=== PATIENT | male | born 1945 | race Caucasian/White ===

== ENCOUNTER → 2021-06-22 09:42 | Outpatient (BNVA) | payer MEDICARE, SELFPAY | PROVIDERS: PCP Family Medicine; Referring Provider Family Medicine; Visit Provider Internal Medicine | DX: I25.10 Atherosclerotic heart disease of native coronary artery without angina pectoris (principal); I10 Essential (primary) hypertension; E11.8 Type 2 diabetes mellitus with unspecified complications; Z95.1 Presence of aortocoronary bypass graft | CPT/HCPCS: 93005; 99202 ==

== ENCOUNTER → 2021-08-10 08:29 | Outpatient (REF) | payer MEDICARE, SELFPAY ==
--- NOTE | 2021-08-10 08:39 | CA_ITS ---
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 Study Quality: Fair ECG Rhythm: Sinus Conclusions: - The left ventricular systolic function is normal. The calculated ejection fraction is 66% by biplane method. - There is severely decreased right ventricular systolic function. - There is mild aortic valve stenosis. Findings Left Ventricle Normal left ventricular cavity size. The left ventricular systolic function is normal. The calculated ejection fraction is 66% by biplane method. There is no evidence of regional wall motion abnormalities. Diastolic function is normal for age. There is mild septal asymmetric hypertrophy. Right Ventricle Normal right ventricular cavity size. There is severely decreased right ventricular systolic function. Atria Both atria are normal in size. Aortic Valve There is mild calcification of the aortic valve. There is mild aortic valve stenosis. The mean gradient is 8 mmHg. There is no aortic valve regurgitation. Dimensionless index 0.44. Stroke volume index 30ml. Mitral Valve The mitral valve appears normal. There is trace mitral valve regurgitation. There is no mitral valve stenosis. Pulmonic Valve The pulmonic valve was not well visualized. Tricuspid Valve Normal tricuspid valve structure. There is trace tricuspid valve regurgitation. The pulmonary artery systolic pressure is normal. Great Vessels The aortic annulus, sinuses of valsalva, sino tubular ridge, and asc aorta are normal in size. Small plaque is seen in the sino tubular ridge. Venous The inferior vena cava is normal in size and collapses greater than 50% with inspiration. Pericardium/Pleural There is no evidence of pericardial effusion. Prior Study Comparison No prior study available for comparison. Measurements 2D Linear Measurements IVSd: 1.29 0.6-0.9/0.6-1.0 cm LVIDd: 4.13 3.9-5.3/4.2-5.9 cm LVIDd Index: 2.31 2.4-3.2/2.2-3.1 cm/m2 LVIDs: 1.93 2.0-3.6 cm LVPWd: 0.90 0.7-1.1 cm LA Diam: 3.20 2.7-3.8/3.0-4.0 cm LAIDs Index: 1.79 1.5-2.3 cm/m2 LV Mass: 189.52 67-162/88-224 g LV Mass Index: 105.88 43-95/49-115 g/m2 LVOT Diam: 2.00 3.0+(-)1.3 cm 2D Systolic Function EF 4C: 61.60 >55% EF 2C: 65.80 >55% EF BiP: 65.50 >55% Mitral Valve MV Pk E: 0.67 MV PK A: 0.83 MV Decel Time: 285.00 E/A: 0.80 E'Lateral: 9.14 E'Medial: 6.85 E/E' Med: 9.70 E/E' Lat: 7.30 PHT: 84.00 MVA PHT: 2.62 Decel Frederick: 2.34 Aortic Valve AoV Pk James: 1.89 AoV Mn James: 1.29 AoV VTI: 0.39 AoV Pk Grad: 14.00 Aov Mn Grad: 8.00 SOPHIA Cont.VTI: 1.37 LVOT LVOT Pk James: 0.83 LVOT Mn James: 0.56 LVOT VTI: 0.17 LVOT Pk Grad: 3.00 LVOT Mn Grad: 1.00 LVOT Diam: 2.00 LVOT Area: 3.14 Diastolic Function MV Pk E: 0.67 MV Pk A: 0.83 E/A: 0.80 E'Medial: 6.85 E/E' Med: 9.70 E' Laterial: 9.14 E/E' Lat: 7.30 Right Ventricle TAPSE (mm): 7.73 TVS' James: 7.07 Tricuspid Valve TR Pk James: 2.23 TR Pk Grad: 20.00 RA Press: 3.00 RVSP: 23.00 Great Vessels Aorta Sinus of Valsalva: 3.44 2.0-3.[address] Ridge: 1.99 1.7-3.4 cm Ao Asc: 3.80 2.1-3.4 cm Ao Arch: 3.30 Updated in Other Vendor System with Status of Final Chava Stallworth MD electronically signed on 08/12/2021 1:55:50 PM with status of Final
== END ==
LOC: HO.CARD 08:29
PROVIDERS: Visit Provider Internal Medicine
DX: I25.10 Atherosclerotic heart disease of native coronary artery without angina pectoris (principal); Z95.1 Presence of aortocoronary bypass graft
CPT/HCPCS: 93306

== ENCOUNTER 2022-01-05 09:25 | Outpatient (REF) | payer MEDICARE, SELFPAY ==
--- NOTE | ~2022-01-05 | XR_ITS ---
EXAMINATION: XR KNEE, RIGHT XR KNEE, LEFT CLINICAL INFORMATION: Pain COMPARISON: None TECHNIQUE: Right knee is imaged in 5 views. Left knee is imaged in 4 views. FINDINGS: Right: No fracture, dislocation, destructive process, or effusion. There are tricompartment osteoarthritic changes, greatest medial knee joint compartment and lateral patellofemoral joint with joint narrowing and mild subchondral sclerosis and marginal osteophytes. There is no erosive change or definite chondrocalcinosis. Mild secondary genu varus. No lateralization or tilting patella. There is calcification vasculature primarily M?nckeberg medial calcific sclerosis.? Left: No fracture, dislocation, destructive process, or effusion. There are tricompartment osteoarthritic changes, greatest medial knee joint compartment and lateral patellofemoral joint with joint narrowing and mild subchondral sclerosis and marginal osteophytes. There is no erosive change or definite chondrocalcinosis. Mild secondary genu varus. No lateralization or tilting patella. There is calcification vasculature primarily M?nckeberg medial calcific sclerosis.? XR/XR knee LT 4V IMPRESSION: -Bilateral tricompartment osteoarthritis, greatest medial knee joint compartments with secondary genu varus. -No suprapatellar effusion. No erosive change.
--- NOTE | ~2022-01-05 | XR_ITS ---
EXAMINATION: XR LUMBOSACRAL SPINE WITH OBLIQUES CLINICAL INFORMATION: Low back pain COMPARISON: None TECHNIQUE: Lumbar spine is imaged in 5 views. FINDINGS: There is normal lumbar segmentation with 5 nonrib-bearing lumbar vertebrae of normal height and with normal lumbar lordosis. There is a gentle dextrocurvature. There is no lumbar vertebral compression, destructive process, or visible paraspinal soft tissue swelling. Multilevel degenerative changes are present with vertebral spurring at all levels and degenerative disc changes greatest at L5-S1 disc narrowing and endplate sclerosis. There is lesser disc narrowing at L1-L2. Facet degeneration is present at L4-S1. There is a borderline grade 0-1 spondylolisthesis at L4-L5. No visible spondylolysis. The SI joints and visualized sacrum are unremarkable. XR/XR lumbar spine 4V min IMPRESSION: 1. Degenerative disc changes L5-S1. Facet degeneration L4-S1. Multilevel vertebral spurring. 2. Borderline grade 0-1 spondylolisthesis L4-L5. No spondylolysis. 3. No vertebral compression or destructive process.
--- NOTE | ~2022-01-05 | XR_ITS ---
EXAMINATION: XR KNEE, RIGHT XR KNEE, LEFT CLINICAL INFORMATION: Pain COMPARISON: None TECHNIQUE: Right knee is imaged in 5 views. Left knee is imaged in 4 views. FINDINGS: Right: No fracture, dislocation, destructive process, or effusion. There are tricompartment osteoarthritic changes, greatest medial knee joint compartment and lateral patellofemoral joint with joint narrowing and mild subchondral sclerosis and marginal osteophytes. There is no erosive change or definite chondrocalcinosis. Mild secondary genu varus. No lateralization or tilting patella. There is calcification vasculature primarily M?nckeberg medial calcific sclerosis.? Left: No fracture, dislocation, destructive process, or effusion. There are tricompartment osteoarthritic changes, greatest medial knee joint compartment and lateral patellofemoral joint with joint narrowing and mild subchondral sclerosis and marginal osteophytes. There is no erosive change or definite chondrocalcinosis. Mild secondary genu varus. No lateralization or tilting patella. There is calcification vasculature primarily M?nckeberg medial calcific sclerosis.? XR/XR knee RT 4V IMPRESSION: -Bilateral tricompartment osteoarthritis, greatest medial knee joint compartments with secondary genu varus. -No suprapatellar effusion. No erosive change.
== END 2022-01-05 09:26 | disposition home or self-care (01) ==
LOC: HO.XRAY 09:25
PROVIDERS: Visit Provider Family Medicine
DX: M25.561 Pain in right knee (principal); M25.562 Pain in left knee; M54.50 Low back pain, unspecified
CPT/HCPCS: 72110; 73564

== ENCOUNTER 2022-09-01 11:18 | Outpatient (REF) | payer MEDICARE, SELFPAY ==
--- NOTE | ~2022-09-01 | XR_ITS ---
EXAMINATION: XR FOOT, LEFT CLINICAL INFORMATION: Left ankle and foot swelling COMPARISON: None available. TECHNIQUE: AP, lateral, and oblique views of the left foot. FINDINGS: Bone alignment is normal. No fracture or dislocation. Joint spaces are normal. There is a plantar calcaneal spur. There is soft tissue arterial calcification. XR/XR foot LT min 3V IMPRESSION: No acute findings.
== END 2022-09-01 11:19 | disposition home or self-care (01) ==
LOC: HO.XRAY 11:18
PROVIDERS: Visit Provider Family Medicine
DX: M25.472 Effusion, left ankle (principal); R60.0 Localized edema
CPT/HCPCS: 73630

== ENCOUNTER 2023-02-07 10:20 | Outpatient (REF) | payer MEDICARE, SELFPAY ==
[2023-02-07 13:38] LABS: Free T4 (Free Thyroxine) 0.85 ng/dL (0.71-1.85); Thyroid Stimulating Hormone 2.37 uIU/mL (0.32-4.0)
== END 2023-02-07 10:21 | disposition home or self-care (01) ==
LOC: HO.HHCL 10:20
PROVIDERS: Visit Provider Family Medicine
DX: E03.9 Hypothyroidism, unspecified (principal)
CPT/HCPCS: 36415; 84439; 84443

== ENCOUNTER 2023-04-24 09:52 | Outpatient (REF) | payer MEDICARE, SELFPAY ==
[2023-04-24 11:23] LABS: MANUAL DIFF FLAG NO
[2023-04-24 11:44] LABS: Basophils Percent Auto 0.1 % (0-2); Hematocrit 44.5 % (42.0-52.0); Imm Gran Abs Auto 0.03 X10*3/uL (0.00-0.03); Imm Gran Pct Auto 0.4 % (0.0-0.4); Lymphocytes Absolute Auto 1.3 X10*3/uL (1.2-4.9); Mean Corpuscular HGB Conc 31.5 g/dl (31.0-36.0); Mean Corpuscular Hemoglobin 28.8 pg (27.0-33.0); Mean Corpuscular Volume 91.6 fL (80.0-98.0); Mean Platelet Volume 11.8 fL (9.4-12.4); Monocytes Absolute Auto 0.8 X10*3/uL (0.1-1.2); Monocytes Percent Auto 9.9 % (2-11); Neutrophils Absolute Auto 6.1 x10*3/uL (2.0-8.3); Neutrophils Percent Auto 73.6 % (45-73); Platelet Count 232 X10*3/uL (160-400); Red Blood Count 4.86 X10*6/uL (4.60-5.80); Red Cell Distribution Width 13.1 % (11.0-16.0); White Blood Count 8.3 X10*3/uL (4.8-10.8)
[2023-04-24 12:01] LABS: Uric Acid 6.3 mg/dL (3.4-7.0)
[2023-04-24 12:16] LABS: TSH reflex Free T4 0.91 uIU/mL (0.32-4.0)
[2023-04-24 12:24] LABS: Erythrocyte Sedimentation Rate 55 MM/HR (0-15)
== END 2023-04-24 09:53 | disposition home or self-care (01) ==
LOC: HO.HHCL 09:52
PROVIDERS: Visit Provider Family Medicine
DX: M10.9 Gout, unspecified (principal); M25.471 Effusion, right ankle; E03.9 Hypothyroidism, unspecified
CPT/HCPCS: 36415; 84443; 84550; 85025; 85652; 86140

== ENCOUNTER 2023-06-04 10:19 | Outpatient (REF) | payer MEDICARE, SELFPAY ==
[2023-06-04 11:11] LABS: MANUAL DIFF FLAG NO
[2023-06-04 11:42] LABS: Basophils Percent Auto 0.4 % (0-2); Eosinophils Absolute Auto 0.2 X10*3/uL (0.0-0.4); Eosinophils Percent Auto 2.2 % (0-4); Hematocrit 47.8 % (42.0-52.0); Hemoglobin 15.6 g/dl (14.0-18.0); Imm Gran Abs Auto 0.03 X10*3/uL (0.00-0.03); Imm Gran Pct Auto 0.4 % (0.0-0.4); Lymphocytes Absolute Auto 2.1 X10*3/uL (1.2-4.9); Lymphocytes Percent Auto 30.8 % (20-40); Mean Corpuscular HGB Conc 32.6 g/dl (31.0-36.0); Mean Corpuscular Volume 88.8 fL (80.0-98.0); Mean Platelet Volume 11.5 fL (9.4-12.4); Monocytes Absolute Auto 0.7 X10*3/uL (0.1-1.2); Monocytes Percent Auto 10.2 % (2-11); Neutrophils Absolute Auto 3.9 x10*3/uL (2.0-8.3); Platelet Count 189 X10*3/uL (160-400); Red Blood Count 5.38 X10*6/uL (4.60-5.80); Red Cell Distribution Width 13.7 % (11.0-16.0)
[2023-06-04 12:28] LABS: Alanine Aminotransferase 27 U/L (0-40); Albumin Level 4.1 g/dL (3.5-5.0); Alkaline Phosphatase 93 U/L (39-117); Anion Gap 13 (12-20); Aspartate Amino Transferase 26 U/L (5-37); Bilirubin Total 1.3 mg/dL (0.0-1.0); Blood Urea Nitrogen 18 mg/dL (9-16); C Reactive Protein 0.12 mg/dL (< or = 0.50); Calcium 9.7 mg/dL (8.4-10.2); Carbon Dioxide 30 mmol/L (22-29); Chloride 103 mmol/L (96-108); Cholesterol 125 mg/dL (<200); Estimated Glomerular Filt Rate > 60; Glucose Random 119 mg/dL (60-115); HDL Cholesterol 39 mg/dL (>40); LDL Cholesterol Calculated 70 mg/dL (<100); Potassium 4.5 mmol/L (3.3-5.1); Sodium 141 mmol/L (135-145); Total Protein 7.5 g/dL (6.5-8.0); Triglycerides 82 mg/dL (<150); Uric Acid 5.9 mg/dL (3.4-7.0)
[2023-06-04 12:51] LABS: Erythrocyte Sedimentation Rate 4 MM/HR (0-15)
[2023-06-04 12:54] LABS: TSH reflex Free T4 2.57 uIU/mL (0.32-4.0)
[2023-06-04 13:37] LABS: Reflex LDLD? No
[2023-06-04 14:27] LABS: Folate 9.4 ng/mL (> or = 4.0); Vitamin B12 281 pg/mL (200-900)
[2023-06-04 15:41] LABS: Creatinine Urine 129.57 mg/dL; Microalbum/Creatinine Ratio Ur 19.2 ug/mg cr (<30)
== END 2023-06-04 10:20 | disposition home or self-care (01) ==
LOC: HO.HHCL 10:19
PROVIDERS: Visit Provider Family Medicine
DX: E11.59 Type 2 diabetes mellitus with other circulatory complications (principal); M1A.0790 Idiopathic chronic gout, unspecified ankle and foot, without tophus (tophi); E03.9 Hypothyroidism, unspecified
CPT/HCPCS: 36415; 80053; 80061; 82043; 82570; 82607; 82746; 84443; 84550; 85025; 85652; 86140

== ENCOUNTER 2024-01-30 10:32 | Outpatient (REF) | payer MEDICARE, SELFPAY ==
--- NOTE | ~2024-01-30 | XR_ITS ---
EXAMINATION: XR ANKLE, RIGHT CLINICAL INFORMATION: medial aspect, right ankle. History of gout. COMPARISON: None available. TECHNIQUE: AP, lateral, and mortise views of the right ankle. FINDINGS: No fracture, dislocation, or suspicious focal bone lesion. The ankle mortise is intact. The talar dome is normal. No erosions. Normal alignment. There are mild changes of osteoarthritis in the tibiotalar and fibulotalar joints. Mild pes planus suspected. There is a prominent plantar calcaneal spur. There is medial mild soft tissue swelling. There are vascular calcifications. XR/XR ankle RT min 3V IMPRESSION: 1. No acute findings right ankle. 2. Mild osteoarthritis. 3. Prominent plantar calcaneal spur. Electronically signed by: Marcos Duque MD 04/09/2024 03:22 PM BRADY
== END 2024-01-30 10:33 | disposition home or self-care (01) ==
LOC: HO.XRAY 10:32
PROVIDERS: PCP Family Medicine; Visit Provider Family Medicine
DX: M25.571 Pain in right ankle and joints of right foot (principal)
CPT/HCPCS: 73610

== ENCOUNTER → 2024-01-30 10:36 | Outpatient (BNV) | payer MEDICARE, SELFPAY | PROVIDERS: PCP Family Medicine; Visit Provider Radiology Diagnostic Radiology | DX: M77.31 Calcaneal spur, right foot (principal); M19.071 Primary osteoarthritis, right ankle and foot | CPT/HCPCS: 73610 ==

== ENCOUNTER 2024-05-27 12:21 | Outpatient (REF) | payer MEDICARE, SELFPAY ==
[2024-05-27 13:55] LABS: Alanine Aminotransferase 29 U/L (0-40); Alkaline Phosphatase 83 U/L (39-117); Anion Gap 7 (12-20); Aspartate Amino Transferase 32 U/L (5-37); Bilirubin Total 1.2 mg/dL (0.0-1.0); Blood Urea Nitrogen 16 mg/dL (9-16); Calcium 8.9 mg/dL (8.4-10.2); Carbon Dioxide 30 mmol/L (22-29); Chloride 109 mmol/L (96-108); Cholesterol 226 mg/dL (<200); Estimated Glomerular Filt Rate > 60; Glucose Random 120 mg/dL (60-115); HDL Cholesterol 39 mg/dL (>40); LDL Cholesterol Calculated 162 mg/dL (<100); Potassium 4.1 mmol/L (3.3-5.1); Sodium 142 mmol/L (135-145); Total Protein 7.2 g/dL (6.5-8.0); Triglycerides 127 mg/dL (<150)
[2024-05-27 13:57] LABS: TSH reflex Free T4 3.82 uIU/mL (0.32-4.0)
[2024-05-27 14:23] LABS: Folate 11.2 ng/mL (> or = 4.0); Vitamin B12 256 pg/mL (200-900)
[2024-05-27 14:36] LABS: Creatinine Urine 60.52 mg/dL; Microalbum/Creatinine Ratio Ur 19.8 ug/mg cr (<30)
[2024-05-27 18:56] LABS: Reflex LDLD? No
== END 2024-05-27 12:22 | disposition home or self-care (01) ==
LOC: HO.HHCL 12:21
PROVIDERS: Visit Provider Family Medicine
DX: E11.59 Type 2 diabetes mellitus with other circulatory complications (principal); E03.9 Hypothyroidism, unspecified
CPT/HCPCS: 36415; 80053; 80061; 82043; 82570; 82607; 82746; 84443

== ENCOUNTER → 2024-06-13 08:48 | Outpatient (REF) | payer MEDICARE, SELFPAY ==
--- NOTE | 2024-06-13 09:03 | CA_ITS ---
Transthoracic Echocardiogram Patient (Last, First, Middle): Naveed Enciso, Gender: Male Date of : 1945 Age: 79 Procedure Date: 06/13/2024 Procedure Type: Transthoracic Echocardiogram Location: OP Height: 160.02 cm Weight: 74.84 kg BSA: 1.78 m2 Heart Rate: bpm BP: 130 / 64 mmHg Interactive Project Manager: TO Referring MD: Sharee Barone MD Symptoms: NR AVS Study Quality: Fair/Contrast ECG Rhythm: Sinus Conclusions: - The left ventricular systolic function is normal. The calculated ejection fraction is 59% by biplane method. - There is mild to moderate aortic valve stenosis. Findings Procedure Information Contrast agent, definity, is being given per protocol without apparent complications. Left Ventricle Normal left ventricular cavity size. The left ventricular systolic function is normal. The calculated ejection fraction is 59% by biplane method. There is no evidence of regional wall motion abnormalities. Diastolic function is normal for age. There is mild septal asymmetric hypertrophy. Right Ventricle Normal right ventricular cavity size. There is moderate to severely decreased right ventricular systolic function. Atria Both atria are normal in size. Aortic Valve There is moderate calcification of the aortic valve. There is mild to moderate aortic valve stenosis. There is trace (trivial) aortic valve regurgitation. Dimensionless index 0.43. Stroke volume index 30ml/m2. Mitral Valve The mitral valve appears normal. There is no mitral valve regurgitation. There is no mitral valve stenosis. Pulmonic Valve The pulmonic valve is likely normal. Tricuspid Valve There is mild tricuspid valve regurgitation. There is no evidence of pulmonary hypertension. Great Vessels The asc aorta is normal in size. Small plaque is seen in the sino tubular ridge. Venous The inferior vena cava was not well visualized. Pericardium/Pleural There is no evidence of pericardial effusion. Prior Study Comparison No significant change compared to prior study dated: 08/10/2021. Measurements 2D Linear Measurements IVSd: 1.16 0.6-0.9/0.6-1.0 cm LVIDd: 4.09 3.9-5.3/4.2-5.9 cm LVIDd Index: 2.30 2.4-3.2/2.2-3.1 cm/m2 LVIDs: 2.45 2.0-3.6 cm LVPWd: 0.81 0.7-1.1 cm LA Diam: 3.00 2.7-3.8/3.0-4.0 cm LAIDs Index: 1.69 1.5-2.3 cm/m2 LV Mass: 160.64 67-162/88-224 g LV Mass Index: 90.24 43-95/49-115 g/m2 LVOT Diam: 2.00 3.0+(-)1.3 cm 2D Systolic Function EF 4C: 55.80 >55% EF 2C: 60.20 >55% EF BiP: 59.10 >55% Mitral Valve MV Pk E: 0.54 MV PK A: 0.68 MV Decel Time: 243.00 E/A: 0.80 E'Lateral: 7.40 E'Medial: 5.98 E/E' Med: 9.10 E/E' Lat: 7.40 PHT: 69.00 MVA PHT: 3.19 Decel Wirt: 2.35 Aortic Valve AoV Pk James: 2.06 AoV Mn James: 1.51 AoV VTI: 0.45 AoV Pk Grad: 17.00 Aov Mn Grad: 10.00 SOPHIA Cont.VTI: 1.21 LVOT LVOT Pk James: 0.89 LVOT Mn James: 0.58 LVOT VTI: 0.17 LVOT Pk Grad: 3.00 LVOT Mn Grad: 2.00 LVOT Diam: 2.00 LVOT Area: 3.14 Diastolic Function MV Pk E: 0.54 MV Pk A: 0.68 E/A: 0.80 E'Medial: 5.98 E/E' Med: 9.10 E' Laterial: 7.40 E/E' Lat: 7.40 Right Ventricle TAPSE (mm): 8.25 TVS' James: 8.38 Tricuspid Valve TR Pk James: 1.96 TR Pk Grad: 15.00 Great Vessels Aorta Sinus of Valsalva: 3.15 2.0-3.5 cm Ao Asc: 3.70 2.1-3.4 cm Updated in Other Vendor System with Status of Final Chava Stallworth MD electronically signed on 06/14/2024 12:29:53 PM with status of Final
--- OUTSIDE RECORDS SUMMARY | 2024-06-13 09:05 | XMS_ITS | Encounter Summary ---
Author Organization [employer] Address [address] [facility] [address] [place] [address] Care Team Providers Care Floorperson Name Role Phone Sharee Barone MD Primary Care Provider [phone] Reason for Visit * Reason Onset Date Comments Medication Question 09/04/2022 Encounter Details Date Type Department Care Team ([facility] st Contact Info) Description 09/04/2022 Telephone [facility] MED[facility]INE [address] [place], [place] [phone] Sharee Barone MD [address] [place], [place] [phone] Medication Question Social History Tobacco Use Types Packs/Day Years Used Date Smoking Tobacco: Never Passive Smoke Exposure: Never Smokeless Tobacco: Never Alcohol Answer Date Recorded Frequency of Alcohol Consumption Not on file 01/24/2024 Average Number of Drinks Not on file 024 Frequency of Binge Drinking Not on file 01/12 Score 0 01/24/2024 Depression Answer Date Recorded Patient Health Questionnaire-9 Score 0 01/24/2024 Patient Health Questionnaire-9 Score 0 01/24/2024 Last PHQ-9: Questionnaire Data Not on file 0 01/24/2024 Housing Stability Answer Date Recorded What is your housing situation today? I have betty lau 01/24/[address] you li ve. Do you have problems with any of the following? None of the above 01/24/2024 Food Insecurity Answer Date Recorded Within the past 12 months, y ou worried that your food would run out before you got money to buy more: Never True 01/24/2024 Within the past 12 months,th e food you bought just didn't last and you didn't have enough money to get more: Never True 04/2024 Transportation Answer Date Recorded In the past 12 months, has l ack of transportation kept you from medical appts, meetings, work or from getting things needed for daily living? No 01/24/2024 Utilities Answer Date Recorded In the past 12 months, has t he electric, gas, oil or water company threatened to shut off services in your home? No 01/24/2024 Depression Answer Date Recorded Patient Health Questionnaire-2 Score 0 01/24/2024 Internet Access Answer Date Recorded Internet Access Q1 Yes 01/24/2024 Internet Access Q2 Not on file 01/24/2024 Sex and Gender Information Value Date Recorded Sex Assigned at Male 03/13/2022 10:39 AM EDT Legal Sex Male 10:39 AM EDT Gender Identity Male 03/13/2022 10:39 AM EDT Sexual Orientation Choose not to disclose 2021 10:39 AM EDT COVID-19 Exposure Response Date Recorded In the last 10 days, have yo u been in contact with someone who was confirmed or suspected to have Coronavirus/COVID-19? No / Unsure 10/20/2022 10:23 AM EDT documented as of this encounter Miscellaneous Notes * Telephone Encounter - Norma Santoyo RN - 09/04/2022 10:30 AM EDT See message below. Pt seen on Red Team with Dr. Singh, no rx noted in chart ordered 09/01/22, x-ray results not available. RN will forward to Dr. Singh regarding rx. Please review and advise Red Team Nurses. TY Tc from pt daughter states came in to [facility] with pt and is awaiting a script to help reduce liquid inlegs, Ad Taker does not see any recent script. Pt daughter is also requesting XRAY results. Please contact at [phone] Jamaican * Telephone Encounter - Hanane Vaughan - 09/04/2022 10:24 AM EDT Tc from pt daughter states came in to [facility] with pt and is awaiting a script to help reduce liquid inlegs, Ad Taker does not see any recent script. Pt daughter is also requesting XRAY results. Please contact at [phone] Jamaican documented in this encounter Plan of Treatment Not on file documented as of this encounter Visit Diagnoses Not on filedocumented in this encounter Additional Health Concerns Assessment Noted Time PHQ-9 Depression Total Score: 0 06/19/19 23 10:12 AM EST documented as of this encounter Care Teams Floorperson Relationship Specialty Start Date End Date Sharee Barone MD [address] [place] [id number] PCP - General Family Medicine 05/10/21 documented as of this encounter
--- OUTSIDE RECORDS SUMMARY | 2024-06-13 09:05 | XMS_ITS | Encounter Summary ---
Author Organization [employer] Address [address] [facility] [address] [place] [address] Care Team Providers Care Principal Planner Name Role Phone Sharee Barone MD Primary Care Provider [phone] Encounter Details Date Type Department Care Team (Late st Contact Info) Description 04/27/2023 Orders Only [facility] MEDICINE [address] [place], [place] [phone] Sharee Barone MD [address] [place], [place] [phone] Chronic gout of ankle, unspecified cause, unspecified laterality (Primary Dx) Social History Tobacco Use Types Packs/Day Years Used Date Smoking Tobacco: Never Passive Smoke Exposure: Never Smokeless Tobacco: Never Depression Answer Date Recorded Patient Health Questionnaire-9 Score 0 06/19/2022 Housing Stability Answer Date Recorded What is your housing situation today? I have betty lau 03/23/[address] you li ve. Do you have problems with any of the following? None of the above 03/23/2023 Food Insecurity Answer Date Recorded Within the past 12 months, y ou worried that your food would run out before you got money to buy more: Never True 03/23/2023 Within the past 12 months,th e food you bought just didn't last and you didn't have enough money to get more: Never True 02/2023 Transportation Answer Date Recorded In the past 12 months, has l ack of transportation kept you from medical appts, meetings, work or from getting things needed for daily living? No 03/23/2023 Utilities Answer Date Recorded In the past 12 months, has t he electric, gas, oil or water company threatened to shut off services in your home? No 03/23/2023 Depression Answer Date Recorded Patient Health Questionnaire-2 Score 0 06/19/2022 Sex and Gender Information Value Date Recorded Sex Assigned at Male 03/13/2022 10:39 AM EDT Legal Sex Male 10:39 AM EDT Gender Identity Male 03/13/2022 10:39 AM EDT Sexual Orientation Choose not to disclose 2021 10:39 AM EDT documented as of this encounter Plan of Treatment Scheduled Orders Name Type Priority Associated Diagnoses Orde r Schedule Uric acid Lab Routine Chronic gout of ankle, unspecified cause, unspecified laterality Expected: 05/18/2023, Expires: 04/27/2024 C-reactive Protein Lab Routine Chronic gout of ankle, unspecified cause, unspecified laterality Expected: 05/18/2023, Expires: 04/27/2024 documented as of this encounter Visit Diagnoses Diagnosis Chronic gout of ankle, unspecified cause, unspecified laterality- Primary documented in this encounter Additional Health Concerns Assessment Noted Time PHQ-9 Depression Total Score: 0 06/19/19 23 10:12 AM EST documented as of this encounter Care Teams Principal Planner Relationship Specialty Start Date End Date Sharee Barone MD [address] [place] [id number] PCP - General Family Medicine 05/10/21 documented as of this encounter
--- OUTSIDE RECORDS SUMMARY | 2024-06-13 09:05 | XMS_ITS | Encounter Summary ---
Author Organization [facility] [employer] Address [address] [facility] [address] [place] [address] Care Team Providers Care Solvent Station Attendant Name Role Phone Sharee Barone MD Primary Care Provider [phone] Encounter Details Date Type Department Care Team (Late st Contact Info) Description 04/26/2023 Orders Only [facility] MEDICINE [address] [place], [place] [phone] Sharee Barone MD [address] [place], [place] [phone] Social History Tobacco Use Types Packs/Day Years [...] as of this encounter Plan of Treatment Not on file documented as of this encounter Visit Diagnoses Not on filedocumented in this encounter Additional Health Concerns Assessment Noted Time PHQ-9 Depression Total Score: 0 06/19/19 23 10:12 AM EST documented as of this encounter Care Teams Solvent Station Attendant Relationship Specialty Start Date End Date Sharee Barone MD [address] [place] [address] PCP - General Family Medicine 05/10/21 documented as of this encounter
--- OUTSIDE RECORDS SUMMARY | 2024-06-13 09:05 | XMS_ITS | Encounter Summary ---
Author Organization [employer] Address [address] [facility] 7t [place] [address] Care Team Providers Care Occupational Health And Safety Adviser Name Role Phone Sharee Barone MD Primary Care Provider [phone] Reason for Referral * Imaging (Routine) - Authorized Specialty Diagnoses / Procedures Referred By Lola rubin Referred To Contact Cardiology Diagnoses Nonrheumatic aortic valve stenosis Procedures Transthoracic Echo (TTE) Complete Sharee Barone MD [address] [place] [address] Phone: tel: fax: [address] Phone: tel: fax: Referral ID Status Reason Start Date Expiration Date Visits Requested Visits Authorized [id number] Authorized Perform Procedure 05/27/2024 05/27/2025 1 1 Encounter Details Date Type Department Care Team (Latest Contact Info) Description 05/27/2024 11:30 AM EST Office Visit [facility]INE [address] [place], [place] [phone] Sharee Barone MD [address] [place], [place] [phone] JULIANO (obstructive sleep apnea) (Primary Dx); Primary hypertension; Ischemic heart disease; Nonrheumatic aortic valve stenosis; Coronary artery disease involving torres martinez coronary artery of torres martinez heart without angina pectoris; Primary osteoarthritis of both knees; Type 2 diabetes mellitus with other circulatory complication, without long-term current use of insulin ([facility]); Acquired hypothyroidism; Chronic gout of right ankle, unspecified cause; Dyslipidemia; Need for COVID-19 vaccine; Dietary counseling; Exercise counseling; Class 1 obesity due to excess calories with serious comorbidity and body mass index (BMI) of 32.0 to 32.9 in adult; Obesity (BMI 30.0-34.9) Social History Tobacco Use Types Packs/Day Years Used Date Smoking Tobacco: Never Passive Smoke Exposure: Never Smokeless Tobacco: Never Alcohol Use Standard Drinks/Week Comments Never 0 (1 standard drink = 0.6 oz pur e alcohol) Alcohol Answer Date Recorded Frequency of Alcohol [...] the past 12 months, has t he [employer], gas, oil or water [employer] threatened to shut off services in your [...] AM EDT documented as of this encounter Last Filed Vital Signs Vital Sign Reading Time Taken Comments Blood Pressure 134/88 05/27/2024 12:02 PM EST Pulse 65 05/27/2024 11:47 AM EST Temperature 36.2 ??C (97.1 ??F) 05/27/2024 11:[address] Respiratory Rate 22 05/27/2024 11:47 AM EST Oxygen Saturation 98% 05/27/2024 11:47 AM EST Inhaled Oxygen Concentration - - Weight 77.6 kg (171 lb) 05/27/2024 11:47 AM EST Height - - Body Mass Index 32.24 01/24/2024 10:30 AM EDT documented in this encounter Progress Notes * Sharee Barone MD - 05/27/2024 11:30 AM EST Subjective Naveed Neal is a 79 y.o. male who has CAD s/p CABG, hypertension, diabetes mellitus type 2, gout, and hypothyroidism, and patient presents for follow up of chronic conditions. Background: Our last encounter was 01/24/2024. He was looking forward to traveling to [place] soon. He reported R ankle pain and swelling. He did not think that it was gout. Interval history: No hospitalization or ED visit. No notes from consultants. Today: He is here with his daughter, who is his primary caregiver. His BP is elevated, but his home blood pressure measurements have been normal according to the patient. He has been adherent to his medication and low sodium diet. He does not drink alcohol or smoke cigarettes. His daughter attributes it to stress. His family member in [place] is having some health problem, and he is worried. He reports occasional bilateral knee pain. No recent gout attack. His daughter states his log roller's office discharged him to primary care because he was doing well. Review of Systems Constitutional: Negative for activity change, appetite change and fever. Respiratory: Negative for shortness of breath. Cardiovascular: Negative for chest pain and palpitations. Neurological: Negative for dizziness. Objective Vitals: 05/27/24 1147 05/27/24 1202 BP: (!) 150/90 134/88 Pulse: 65 Resp: 22 Temp: 97.1 ??F (36.2 ??C) TempSrc: Temporal SpO2: 98% Weight: 171 lb (77.6 kg) Physical Exam Constitutional: General: He is not in acute distress. Appearance: Normal appearance. He is not ill-appearing. HENT: Head: Normocephalic and atraumatic. Mouth/Throat: Mouth: Mucous membranes are moist. Eyes: Extraocular Movements: Extraocular movements intact. Pupils: Pupils are equal, round, and reactive to light. Cardiovascular: Rate and Rhythm: Normal rate and regular rhythm. Heart sounds: Murmur heard. Systolic murmur is present with a grade of 3/6. Pulmonary: Effort: Pulmonary effort is normal. No respiratory distress. Breath sounds: Normal breath sounds. No wheezing or rhonchi. Skin: General: Skin is warm. Neurological: Mental Status: He is alert. Mental status is at baseline. Psychiatric: Mood and Affect: Mood normal. Results: Lab Results Component Value Date NA 141 06/04/2023 K 4.5 06/04/2023 CL 103 06/04/2023 CO2 30 (H) 06/04/2023 BUN 18 (H) 06/04/2023 CREATININE 1.00 06/04/2023 EGFR >60 06/04/2023 GLUCOSE 119 (H) 06/04/2023 TOTALBILIRUB 1.3 (H) 06/04/2023 AST 26 06/04/2023 ALT 27 06/04/2023 TOTPROTEIN 7.5 06/04/2023 ALB 4.1 06/04/2023 ALP 93 06/04/2023 Lab Results Component Value Date TRIG 82 06/04/2023 CHOL 125 06/04/2023 LDLCHOLCAL 70 06/04/2023 HDL 39 (L) 06/04/2023 Lab Results Component Value Date HGBA1C 6.3 (A) 05/27/2024 MICROALBUR 25.0 06/04/2023 CREATUR 129.57 06/04/2023 MICROALBCREU 19.2 06/04/2023 ALBCREATUR 13 06/19/2022 Lab Results Component Value Date WBC 7.0 06/04/2023 HGB 15.6 06/04/2023 HCT 47.8 06/04/2023 PLT 189 06/04/2023 MCV 88.8 06/04/2023 Lab Results Component Value Date TSH 2.57 06/04/2023 TSH 0.91 04/24/2023 TSH 2.37 02/07/2023 FREET4 0.85 02/07/2023 Assessment/Plan Problem List Items Addressed This Visit Coronary artery disease Hypothyroidism -Current replacement: levothyroxine 50 mcg daily -Last TSH: 2.57 on 06/04/23 -Continue current medication and adjust its dose accordingly. Type 2 diabetes mellitus ([facility]) -HgbA1C 6.4% on 01/24/24 -Occasional prednisone use when he has gout attack (last attack in Apr 2023, slight increase in A1C) -Continue working on lifestyle modifications -Continue Metformin 500mg BID -Last eye exam: Dr. Wallace 06/14/23, no diabetic retinopathy, s/p cataract surgery -Last microalbumin test: 06/04/23 UACR 19.2, no microalbuminuria -Last lipid profile: 06/04/23 -Last comprehensive foot exam: 01/24/24 Relevant Orders POCT glucose manually resulted (Completed) POCT glycosylated hemoglobin (Hgb A1c) (Completed) JULIANO (obstructive sleep apnea) - Primary - Continue current CPAP use - Improve adherence - Recommended to talk with CPAP supplier for trying different mask Ischemic heart disease Osteoarthritis of both knees X-ray on 01/05/22 showed OA. -Pt prefers conservative management with Tylenol and Diclofenac topical -continue current treatment plan Hypertension -Goal BP < 140/90 per JNC-8 and < 130/80 per ACC/AHA -BP is not at goal today -home BP within acceptable range -Continue metoprolol tartrate 50 mg bid -Continue ASA -Continue CPAP -Continue working on lifestyle modifications -Continue checking home BP periodically -Follow-up in 3 mo. Nonrheumatic aortic valve stenosis -TTE on 08/10/21 showed LVEF 66%, severely decreased right ventricular systolic function. Mild aortic stenosis. -His murmur sounds more prominent that last exam, Grade II-III (last one was II) -[place] [facility] [place] and to follow every 1-2 years with TTE q1-2 years. -Will order echocardiogram Relevant Orders Transthoracic Echo (TTE) Complete Dyslipidemia -Last lipid profile: 06/04/23 -current medication: atorvastatin 40 mg at bedtime (high-intensity statin therapy) -continue working on lifestyle modification Obesity (BMI 30.0-34.9) Gout -most recent flare-up in Apr 2023, treated with prednisone -frequency: 2x a year, usually ankle and knee -continue low-purine diet -continue allopurinol to achieve and maintain goal < 6.0 mg/dl -his diabetes mellitus is reasonably controlled for episodic prednisone use Other Visit Diagnoses Need for COVID-19 vaccine Relevant Orders [employer] COVID-19 Vaccine 12+ (Completed) Dietary counseling Exercise counseling Class 1 obesity due to excess calories with serious comorbidity and body mass index (BMI) of 32.0 to 32.9 in adult No Known Allergies Current Outpatient Medications Medication Instructions Acetaminophen Extra Strength 500 MG tablet TAKE 2 TABLETS BY MOUTH EVERY 6 HOURS NEEDED FOR MILDPAIN, FOR MODERATE PAIN, OR FOR FEVER Alcohol Swabs (Alcohol Prep) 70 % pads USE DIRECTED TO TEST BLOOD SUGAR DAILY AND NEEDED Aspirin Adult Low Strength 81 MG EC tablet TAKE 1 TABLET BY MOUTH DAILY IN THE MORNING atorvastatin (LIPITOR) 40 mg, Oral, Nightly diclofenac sodium 3 % gel APPLY TWICE DAILY TO AFFECTED AREA(S) ibuprofen 600 mg, Oral, Every 8 hours PRN Lancets ([employer] PeopleTouch Delica Plus [id number]) misc USE DIRECTED TO TEST BLOOD SUGAR DAILY AND NEEDED levothyroxine (Synthroid, Levoxyl) 50 MCG tablet TAKE 1 TABLET BY MOUTH DAILY IN THE MORNING metFORMIN XR (Glucophage-XR) 500 MG 24 hr tablet TAKE 1 TABLET BY MOUTH TWICE DAILY IN THE MORNING AND IN THE EVENING WITH MEALS metoprolol tartrate (Lopressor) 50 MG tablet TAKE 1 TABLET BY MOUTH WITH BREAKFAST AND WITH DINNER PageUp PeopleTouch Ultra Test test strip USE DIRECTED TO TEST BLOOD SUGAR DAILY AND NEEDED Follow-up: 3-4 mo or sooner if any problem arises. documented in this encounter Miscellaneous Notes * Assessment & Plan Note - Sharee Barone MD - 05/27/2024 1:15 PM ESTAssociated Problem(s): Dyslipidemia -Last lipid profile: 06/04/23 -current medication: atorvastatin 40 mg at bedtime (high-intensity statin therapy) -continue working on lifestyle modification * Assessment & Plan Note - Sharee Barone MD - 05/27/2024 1:15 PM ESTAssociated Problem(s): Gout -most recent flare-up in Apr 2023, treated with prednisone -frequency: 2x a year, usually ankle and knee -continue low-purine diet -continue allopurinol to achieve and maintain goal < 6.0 mg/dl -his diabetes mellitus is reasonably controlled for episodic prednisone use * Assessment & Plan Note - Sharee Barone MD - 05/27/2024 1:15 PM ESTAssociated Problem(s): Hypothyroidism -Current replacement: levothyroxine 50 mcg daily -Last TSH: 2.57 on 06/04/23 -Continue current medication and adjust its dose accordingly. * Assessment & Plan Note - Sharee Barone MD - 05/27/2024 1:13 PM ESTAssociated Problem(s): Type 2 diabetes mellitus (CMS/HCC) -HgbA1C 6.4% on 01/24/24 -Occasional prednisone use when he has gout attack (last attack in Apr 2023, slight increase in A1C) -Continue working on lifestyle modifications -Continue Metformin 500mg BID -Last eye exam: Dr. Wallace 06/14/23, no diabetic retinopathy, s/p cataract surgery -Last microalbumin test: 06/04/23 UACR 19.2, no microalbuminuria -Last lipid profile: 06/04/23 -Last comprehensive foot exam: 01/24/24 * Assessment & Plan Note - Sharee Barone MD - 05/27/2024 1:13 PM ESTAssociated Problem(s): Osteoarthritis of both knees X-ray on 01/05/22 showed OA. -Pt prefers conservative management with Tylenol and Diclofenac topical -continue current treatment plan * Assessment & Plan Note - Sharee Barone MD - 05/27/2024 1:12 PM ESTAssociated Problem(s): JULIANO (obstructive sleep apnea) - Continue current CPAP use - Improve adherence - Recommended to talk with CPAP supplier for trying different mask * Assessment & Plan Note - Sharee Barone MD - 05/27/2024 12:04 PM ESTAssociated Problem(s): Nonrheumatic aortic valve stenosis -TTE on 08/10/21 showed LVEF 66%, severely decreased right ventricular systolic function. Mild aortic stenosis. -His murmur sounds more prominent that last exam, Grade II-III (last one was II) -[place] [facility] [place] not to [place] patient and to follow every 1-2 years with TTE q1-2 years. -Will order echocardiogram * Assessment & Plan Note - Sharee Barone MD - 05/27/2024 11:52 AM ESTAssociated Problem(s): Hypertension -Goal BP < 140/90 per JNC-8 and < 130/80 per ACC/AHA -BP is not at goal today -home BP within acceptable range -Continue metoprolol tartrate 50 mg bid -Continue ASA -Continue CPAP -Continue working on lifestyle modifications -Continue checking home BP periodically -Follow-up in 3 mo. documented in this encounter Plan of Treatment Scheduled Orders Name Type Priority Associated Diagnoses Order Schedule Transthoracic Echo (TTE) Complete Echocardiography Routine Nonrheumatic aortic valve stenosis Expected: 05/27/2024 (Approximate), Expires: 05/27/2026 documented as of this encounter Procedures Procedure Name Priority Date/Time Associated Diagnosis Comments POCT GLYCOSYLATED HEMOGLOBIN (HGB A1C) Routine 05/27/2024 11:49 AM EST Type 2 diabetes mellitus with other circulatory complication, without long-term current use of insulin ([facility]) POCT GLUCOSE Routine 05/27/2024 11:48 AM EST Type 2 diabetes mellitus with other circulatory complication, without long-term current use of insulin ([facility]) documented in this encounter Results * (ABNORMAL) POCT glycosylated hemoglobin (Hgb A1c) (05/27/2024 11:49 AM EST) Hemoglobin A1C 6.3(A) 4.0 - 6.0 % QC Media Lot # [id number] Lot# Expiration Date Blood Capillary blood specimen / Unknown 05/27/2024 11:49 AM EST us Sharee Barone MD POINT OF CARE TEST ENTER/EDIT OR DERABLES Final Result * POCT glucose manually resulted (05/27/2024 11:48 AM EST) Glucose Blood, POC 102 60 - 200 mg/dL QC Media Lot # [id number] Lot# Expiration Date 207 Blood Capillary blood specimen / Unknown 05/27/2024 11:48 AM EST us Sharee Barone MD POINT OF CARE TEST ENTER/EDIT OR DERABLES Final Result documented in this encounter Visit Diagnoses Diagnosis JULIANO (obstructive sleep apnea)- Primary Obstructive sleep apnea (adult) (pediatric) Primary hypertension Unspecified essential hypertension Ischemic heart disease Other specified forms of chronic ischemic heart disease Nonrheumatic aortic valve stenosis Coronary artery disease involving torres martinez coronary artery of torres martinez heart without angina pectoris Primary osteoarthritis of both knees Type 2 diabetes mellitus with other circulatory complication, without long-term current use of insulin ([facility]) Acquired hypothyroidism Unspecified hypothyroidism Chronic gout of right ankle, unspecified cause Dyslipidemia Other and unspecified hyperlipidemia Need for COVID-19 vaccine Dietary counseling Dietary surveillance and counseling Exercise counseling Class 1 obesity due to excess calories with serious comorbidity and body mass index (BMI) of 32.0 to 32.9 in adult Obesity (BMI 30.0-34.9) documented in this encounter Additional Health Concerns Assessment Noted Time PHQ-9 Depression Total Score: 0 01/24/20 24 10:28 AM EDT documented as of this encounter Care Teams Occupational Health And Safety Adviser Relationship Specialty Start Date End Date Sharee Barone MD [address] [place] [id number] PCP - General Family Medicine 05/10/21 documented as of this encounter
--- OUTSIDE RECORDS SUMMARY | 2024-06-13 09:05 | XMS_ITS | Encounter Summary ---
Author Organization [employer] Address [address] [facility] 7t [place] [address] Care Team Providers Care Warehouse Receiving Supervisor Name Role Phone Sharee Barone MD Primary Care Provider Encounter Details Date Type Department Care Team (Late st Contact Info) Description 05/19/2022 Orders Only [facility] MEDICINE [address] [place], [place] [phone] Leonela Ge, RN [address] [place], [place] [phone] Social History Tobacco Use Types Packs/Day Years Used Date Smoking Tobacco: Never Assessed Sex and Gender Information Value Date Recorded Sex Assigned at Male 03/13/2022 10:39 AM EDT Legal Sex Male 10:39 AM EDT Gender Identity Male 03/13/2022 10:39 AM EDT Sexual Orientation Choose not to disclose 2021 10:39 AM EDT documented as of this encounter Plan of Treatment Not on file documented as of this encounter Visit Diagnoses Not on filedocumented in this encounter Care Teams Warehouse Receiving Supervisor Relationship Specialty Start Date End Date Sharee Barone MD [address] [place], [place] [phone] PCP - General Family Medicine 05/10/21 documented as of this encounter
--- OUTSIDE RECORDS SUMMARY | 2024-06-13 09:05 | XMS_ITS | Encounter Summary ---
Author Organization [employer] Address [address] [facility] [address] 7[address] [place] [address] Care Team Providers Care Mapping Supervisor Name Role Phone Shaere Barone MD Primary Care Provider [phone] Reason for Visit * Reason Onset Date Comments Results 05/30/2024 Encounter Details Date Type Department Care Team ([facility] st Contact Info) Description 05/30/2024 Telephone [facility] MEDICINE [address] [place] [address] Erika Dong, SHAHNAZ Results Social History Tobacco Use Types Packs/Day Years [...] encounter Miscellaneous Notes * Telephone Encounter - Erika Dong RN - 05/30/2024 9:08 AM EST TC placed to pt daughter Cristina (HIPAA compliant) to inform of most recent blood work results below regarding pt cholesterol and thyroid levels. RN inquired with Cristina if the pt has been compliant with both Statin and Synthroid medications. Cristina was unsure of the pt compliance taking these medications as prescribed but was advised to f/u with pt and make sure if refills are needed to letus know. Cristina stated understanding and to call back as needed. ----- Message from Sharee Barone MD sent at 05/30/2024 5:58 AM EST ----- Please inform patient or patient's daughter / caregiver that his cholesterol is much higher than the one in last year. Please check his adherence do cholesterol medication. Thyroid function is still normal range, but is becoming borderline range. Please check his adherence to thyroid medication. Ifhe has been adherent to medication, then it is most likely due to his diet and physical activity lev el. Please encourage patient to work on lifestyle modification, even a small change can make a difference. Thank you. documented in this encounter Plan of Treatment Not on file documented as of this encounter Visit Diagnoses Not on filedocumented in this encounter Additional Health Concerns Assessment Noted Time PHQ-9 Depression Total Score: 0 01/24/20 24 10:28 AM EDT documented as of this encounter Care Teams Mapping Supervisor Relationship Specialty Start Date End Date Sharee Barone MD [address] [place] [address] PCP - General Family Medicine 05/10/21 documented as of this encounter
--- OUTSIDE RECORDS SUMMARY | 2024-06-13 09:05 | XMS_ITS | Encounter Summary ---
Author Organization [employer] Address [address] [facility] 7t [place] [address] Care Team Providers Care Oncology Physician Name Role Phone Sharee Barone MD Primary Care Provider [phone] Encounter Details Date Type Department Care Team (Latest Contact Info) Description 05/27/2024 Travel Social History Tobacco Use Types Packs/Day Years [...] your housing situation today? I have betty sid 01/24/[address] you li [...] t he electric, gas, oil or water [employer] threatened to shut off services in your [...] documented as of this encounter Care Teams Oncology Physician Relationship Specialty Start Date End Date Sharee Barone MD [address] [place] [id number] PCP - General Family Medicine 05/10/21 documented as of this encounter
--- OUTSIDE RECORDS SUMMARY | 2024-06-13 09:05 | XMS_ITS | Encounter Summary ---
Author Organization [employer] Address [address] [facility] 7t [place] [address] Care Team Providers Care Transmission Supervisor Name Role Phone Sharee Barone MD Primary Care Provider [phone] Encounter Details Date Type Department Care Team (Late st Contact Info) Description 05/16/2022 Orders Only [facility] [address] [place] [address] Joy Lira LPN Social History Tobacco Use Types Packs/Day Years [...] on filedocumented in this encounter Care Teams Transmission Supervisor Relationship Specialty Start Date End Date Sharee Barone MD [address] [place] [id number] PCP - General Family Medicine 05/10/21 documented as of this encounter
--- OUTSIDE RECORDS SUMMARY | 2024-06-13 09:06 | XMS_ITS | Clinical Summary ---
Author Organization [facility] Address [address] [facility] [address] [place] [address] Care Team Providers Care Entertainer Or Variety Artist Name Role Phone Sharee Barone MD Primary Care Provider [phone] Allergies No known active allergies Medications diclofenac sodium 3 % gel APPLY TWICE DAILY TO AFFECTED AREA(S) 2 Active Acetaminophen Extra Strength 500 MG tabletIndications :Pain TAKE 2 TABLETS BY MOUTH EVERY 6 HOURS NEEDED FOR MILD PAIN, FOR MODERATE PAIN, OR FOR FEVER 60 tablet 3 4 Active Lancets (OneTouch Delica Plus [id number]) misc USE DIRECTED TO TEST BLOOD SUGAR DAILY AND NEEDED 100 each 5 4 Active Alcohol Swabs (Alcohol Prep) 70 % pads USE DIRECTED TO TEST BLOOD SUGAR DAILY AND NEEDED 100 each 5 4 Active OneTouch Ultra Test test strip USE DIRECTED TO TEST BLOOD SUGAR DAILY AND NEEDED 50 strip 5 4 Active metFORMIN XR (Glucophage-XR) 500 MG 24 hr tabletIndications :Diabetes mellitus with coincident hypertension (CMS/HCC) (CMS/HCC) TAKE 1 TABLET BY MOUTH TWICE DAILY IN THE MORNING AND IN THE EVENING WITH MEALS 180 tablet 3 4 Active metoprolol tartrate (Lopressor) 50 MG tabletIndications :Primary hypertension TAKE 1 TABLET BY MOUTH WITH BREAKFAST AND WITH DINNER 180 tablet 3 4 Active Aspirin Adult Low Strength 81 MG EC tabletIndications :Diabetes mellitus with coincident hypertension (CMS/HCC) (CMS/HCC) TAKE 1 TABLET BY MOUTH DAILY IN THE MORNING 90 tablet 3 4 Active atorvastatin (Lipitor) 40 MG tabletIndications :Diabetes mellitus with coincident hypertension (CMS/HCC) (CMS/HCC) TAKE 1 TABLET BY MOUTH DAILY AT BEDTIME 90 tablet 3 4 Active levothyroxine (Synthroid, Levoxyl) 50 MCG tabletIndications :Hypothyroidism, unspecified type TAKE 1 TABLET BY MOUTH DAILY IN THE MORNING 90 tablet 3 4 Active ibuprofen 600 MG tablet Take 1 tablet (600 mg) by mouth every 8 (eight) hours if needed for mild pain. 50 tablet 1 4 Active Active Problems Problem Noted Date Diagnosed Date Acute right ankle pain 01/24/2024 Assessment & Plan (01/24/2024 10:55 AM EDT): - continue judicious use of ibuprofen - continue ice and gentle stretching exercises - will evaluate with XR Gout 04/24/2023 Assessment & Plan (05/27/2024 1:15 PM EST): -most recent flare-up in Apr 2023, treated with prednisone -frequency: 2x a year, usually ankle and knee -continue low-purine diet -continue allopurinol to achieve and maintain goal < 6.0 mg/dl -his diabetes mellitus is reasonably controlled for episodic prednisone use Assessment & Plan (01/24/2024 10:43 AM EDT): -most recent flare-up in Apr 2023, treated with prednisone -frequency: 2x a year, usually ankle and knee -continue low-purine diet -continue allopurinol to achieve and maintain goal < 6.0 mg/dl -his diabetes mellitus is reasonably controlled for episodic prednisone use Assessment & Plan (10/04/2023 5:20 AM EDT): -most recent flare-up in Apr 2023, treated with prednisone -frequency: 2x a year, usually ankle and knee -continue low-purine diet -continue allopurinol to achieve and maintain goal < 6.0 mg/dl -his diabetes mellitus is reasonably controlled for episodic prednisone use Assessment & Plan (06/10/2023 6:31 AM EST): -most recent flare-up in Apr 2023, treated with prednisone -frequency: 2x a year, usually ankle and knee -continue low-purine diet -continue allopurinol to achieve and maintain goal < 6.0 mg/dl -his diabetes mellitus is reasonably controlled for episodic prednisone use Assessment & Plan (04/24/2023 10:55 AM EST): - currently having an acute attack - check uric acid level - will treat with prednisone 40 mg daily x 5 days - monitor BG and BP while on prednisone Obesity (BMI 30.0-34.9) 10/29/2022 Chronic gout of ankle 10/18/2022 Assessment & Plan (01/24/2024 10:42 AM EDT): -most recent flare-up in Apr 2023, treated with prednisone -frequency: 2x a year, usually ankle and knee -continue low-purine diet -continue allopurinol to achieve and maintain goal < 6.0 mg/dl -his diabetes mellitus is reasonably controlled for episodic prednisone use Assessment & Plan (06/10/2023 6:30 AM EST): -most recent flare-up in Apr 2023, treated with prednisone -frequency: 2x a year, usually ankle and knee -continue low-purine diet -continue allopurinol to achieve and maintain goal < 6.0 mg/dl -his diabetes mellitus is reasonably controlled for episodic prednisone use Assessment & Plan (10/29/2022 6:51 PM EDT): H/O Gout -frequency: 2x a year, usually ankle and knee -continue low-purine diet -will check Uric acid level; if high, will start allopurinol; if normal level, will continue low-purine diet. -Advised to improve glycemic control for a possible prednisone use prn acute gout attack Dyslipidemia 06/25/2022 Assessment & Plan (05/27/2024 1:15 PM EST): -Last lipid profile: 06/04/23 -current medication: atorvastatin 40 mg at bedtime (high-intensity statin therapy) -continue working on lifestyle modification Assessment & Plan (01/24/2024 10:43 AM EDT): -Last lipid profile: 06/04/23 -current medication: atorvastatin 40 mg at bedtime (high-intensity statin therapy) -continue working on lifestyle modification Assessment & Plan (10/04/2023 5:16 AM EDT): -Last lipid profile: 06/04/23 -current medication: atorvastatin 40 mg at bedtime (high-intensity statin therapy) -continue working on lifestyle modification Assessment & Plan (04/22/2023 11:36 AM EST): -Last lipid profile: 06/19/22 TC 129; TG 113; HDL 34; LDL 75 -current medication: atorvastatin 40 mg at bedtime (high-intensity statin therapy) -continue working on lifestyle modification Assessment & Plan (02/09/2023 4:15 PM EDT): -Last lipid profile: 06/19/22 TC 129; TG 113; HDL 34; LDL 75 -current medication: atorvastatin 40 mg at bedtime (high-intensity statin therapy) -continue working on lifestyle modification Assessment & Plan (10/18/2022 10:40 AM EDT): -current medication: atorvastatin 40 mg at bedtime (high-intensity statin therapy) -continue working on lifestyle modification -check lipid profile Assessment & Plan (06/25/2022 10:42 AM EST): -current medication: atorvastatin 40 mg at bedtime (high-intensity statin therapy) -continue working on lifestyle modification -check lipid profile Coronary artery disease 06/19/2022 Hypothyroidism 06/19/2022 Assessment & Plan (05/27/2024 1:15 PM EST): -Current replacement: levothyroxine 50 mcg daily -Last TSH: 2.57 on 06/04/23 -Continue current medication and adjust its dose accordingly. Assessment & Plan (01/24/2024 10:43 AM EDT): -Current replacement: levothyroxine 50 mcg daily -Last TSH: 2.57 on 06/04/23 -Continue current medication and adjust its dose accordingly. Assessment & Plan (10/04/2023 5:21 AM EDT): -Current replacement: levothyroxine 50 mcg daily -Last TSH: 2.57 on 06/04/23 -Continue current medication and adjust its dose accordingly. Assessment & Plan (06/10/2023 6:31 AM EST): -Current replacement: levothyroxine 50 mcg daily -Last TSH: 02/07/23 TSH 2.37 -Continue current medication and adjust its dose accordingly. Assessment & Plan (04/23/2023 8:52 AM EST): -Current replacement: levothyroxine 50 mcg daily -Last TSH: 02/07/23 TSH 2.37 -Continue current medication and adjust its dose accordingly. Assessment & Plan (02/07/2023 10:31 AM EDT): -Current replacement: levothyroxine 50 mcg daily -Last TSH: 10/18/22 TSH 8.72. Poor adherence to levothyroxine. -Update thyroid function test today -Continue current medication and adjust its dose accordingly. Assessment & Plan (10/18/2022 10:49 AM EDT): -Current replacement: levothyroxine 50 mcg daily -Last TSH: 06/19/22 TSH 2.47 -Update thyroid function test today -Continue current medication and adjust its dose accordingly. Assessment & Plan (06/19/2022 10:50 AM EST): -Current replacement: levothyroxine 50 mcg daily -Last TSH: May 2021 TSH 2.46 -Update thyroid function test today -Continue current medication and adjust its dose accordingly. Status post four vessel coronary artery bypass 0 06/19/2022 Tubular adenoma of colon 06/19/2022 Type 2 diabetes mellitus 06/19/2022 Assessment & Plan (05/27/2024 1:14 PM EST): -HgbA1C 6.4% on 01/24/24 -Occasional prednisone use when he has gout attack (last attack in Apr 2023, slight increase in A1C) -Continue working on lifestyle modifications -Continue Metformin 500mg BID -Last eye exam: Dr. Wallace 06/14/23, no diabetic retinopathy, s/p cataract surgery -Last microalbumin test: 06/04/23 UACR 19.2, no microalbuminuria -Last lipid profile: 06/04/23 -Last comprehensive foot exam: 01/24/24 Assessment & Plan (01/24/2024 10:53 AM EDT): -HgbA1C 6.4% on 01/24/24 -Occasional prednisone use when he has gout attack (last attack in Apr 2023, slight increase in A1C) -Continue working on lifestyle modifications -Continue Metformin 500mg BID -Last eye exam: Dr. Wallace 06/14/23, no diabetic retinopathy, s/p cataract surgery -Last microalbumin test: 06/04/23 UACR 19.2, no microalbuminuria -Last lipid profile: 06/04/23 -Last comprehensive foot exam: 01/24/24 -Follow up in 3-4 mo or sooner prn Assessment & Plan (10/04/2023 9:29 AM EDT): -HgbA1C 6.4% on 10/04/23, improved from 7.1% on 06/04/23 (patient had gout attack in Apr 2023 which was treated with prednisone) -Occasional prednisone use when he has gout attack (last attack in Apr 2023, slight increase in A1C) -Continue working on lifestyle modifications -Continue Metformin 500mg BID -Last eye exam: Dr. Wallace 06/14/23, no diabetic retinopathy, s/p cataract surgery -Last microalbumin test: 06/04/23 UACR 19.2, no microalbuminuria -Last lipid profile: 06/04/23 -Last comprehensive foot exam: 10/04/23 -Follow up in 3-4 mo or sooner prn Assessment & Plan (06/10/2023 6:33 AM EST): -HgbA1C 7.1% on 06/04/23, slight increase from 6.8% on 02/04/23. (patient had gout attack in Apr 2023 which was treated with prednisone) -Continue working on lifestyle modifications -Continue Metformin 500mg BID -Last eye exam: Dr. Wallace 11/19/22, no diabetic retinopathy, s/p cataract surgery -Last microalbumin test: 06/19/22 UACR 13 -Last lipid profile: 06/19/22 TC 129; TG 130; HDL 34; LDL 75 -Last comprehensive foot exam: 02/07/23 -Follow up in 3-4 mo or sooner prn -Advised to monitor BG while on prednisone Assessment & Plan (04/24/2023 10:53 AM EST): -HgbA1C 6.8% on 02/04/23. Improving from 7.3% on 10/18/22 -Continue working on lifestyle modifications -Continue Metformin 500mg BID -Last eye exam: upcoming in 11/19/22 -Last microalbumin test: 06/19/22 UACR 13 -Last lipid profile: 06/19/22 TC 129; TG 130; HDL 34; LDL 75 -Last comprehensive foot exam: 02/07/23 -Follow up in 3-4 mo or sooner prn -Advised to monitor BG while on prednisone Assessment & Plan (02/07/2023 10:33 AM EDT): HgbA1C 6.8% on 02/04/23. Improving from 7.3% on 10/18/22 -Continue working on lifestyle modifications -Continue Metformin 500mg BID -Last eye exam: upcoming in 11/19/22 -Last microalbumin test: 06/19/22 UACR 13 -Last lipid profile: 06/19/22 TC 129; TG 130; HDL 34; LDL 75 -Last comprehensive foot exam: 02/07/23 - We agreed not to intensify medication today. Pt will work on lifestyle modifications and follow -up in 3-4 mo to reassess his progress. Assessment & Plan (10/18/2022 10:49 AM EDT): HgbA1C 7.3% on 10/18/22, slight increase from 7.0% 06/19/22 -Continue working on lifestyle modifications -Continue Metformin 500mg BID -Last eye exam: upcoming in 11/19/22 -Last microalbumin test: 06/19/22 UACR 13 -Last lipid profile: 06/19/22 TC 129; TG 130; HDL 34; LDL 75 -Last comprehensive foot exam: 10/18/22 - We agreed not to intensify medication today. Pt will work on lifestyle modifications and follow -up in 3-4 mo to reassess his progress. Assessment & Plan (06/19/2022 10:47 AM EST): HgbA1C 7.0% 06/19/22, trending up -Continue working on lifestyle modifications -Continue Metformin 500mg BID -Last eye exam: 07/07/21 -Last microalbumin test: 05/24/21 UACR 9 -Last lipid profile: 05/24/21 TC 149; HDL; LDL 91; TG 168 -Last comprehensive foot exam: 01/04/22 - We agreed not to intensify medication today. Pt will work on lifestyle modifications and follow -up in 3-4 mo to reassess his progress. JULIANO (obstructive sleep apnea) 06/19/2022 Assessment & Plan (05/27/2024 1:12 PM EST): - Continue current CPAP use - Improve adherence - Recommended to talk with CPAP supplier for trying different mask Assessment & Plan (01/24/2024 10:42 AM EDT): - Continue current CPAP use - Improve adherence - Recommended to talk with CPAP supplier for trying different mask Assessment & Plan (10/04/2023 9:29 AM EDT): - Continue current CPAP use - Improve adherence - Recommended to talk with CPAP supplier for trying different mask Assessment & Plan (06/10/2023 6:18 AM EST): - Continue current CPAP use - Improve adherence - Recommended to talk with CPAP supplier for trying different mask Assessment & Plan (04/24/2023 10:52 AM EST): - Continue current CPAP use - Improve adherence - Recommended to talk with CPAP supplier for trying different mask Assessment & Plan (02/09/2023 4:12 PM EDT): - Continue current CPAP use - Improve adherence - Recommended to talk with CPAP supplier for trying different mask Assessment & Plan (10/18/2022 10:39 AM EDT): - Continue current CPAP use Assessment & Plan (06/19/2022 10:50 AM EST): - Continue current CPAP use Ischemic heart disease 06/19/2022 Assessment & Plan (01/24/2024 10:42 AM EDT): s/p cardiac catheterization 01/2018 s/p cardiac bypass 03/2018 --dicharged with atorvastatin, ASA, Plavix, metoprolol, and isosorbide --Plavix was discontinued when pt developed GI bleed -evaluated by [facility] cardiology provider in July 2021 -08/10/21 LVEF 66%, severely decreased right ventricular systolic function, mild aortic valve stenosis -continue metoprolol tartrate 50mg BID -continue atorvastatin 40 mg qhs -continue ASA 81mg -continue isosorbide -reminded about appt with bessemer bottom maker Assessment & Plan (10/04/2023 9:30 AM EDT): s/p cardiac catheterization 01/2018 s/p cardiac bypass 03/2018 --dicharged with atorvastatin, ASA, Plavix, metoprolol, and isosorbide --Plavix was discontinued when pt developed GI bleed -evaluated by [facility] cardiology provider in July 2021 -08/10/21 LVEF 66%, severely decreased right ventricular systolic function, mild aortic valve stenosis -continue metoprolol tartrate 50mg BID -continue atorvastatin 40 mg qhs -continue ASA 81mg -continue isosorbide -reminded about appt with bessemer bottom maker Assessment & Plan (06/10/2023 6:20 AM EST): s/p cardiac catheterization 01/2018 s/p cardiac bypass 03/2018 --dicharged with atorvastatin, ASA, Plavix, metoprolol, and isosorbide --Plavix was discontinued when pt developed GI bleed -evaluated by [facility] cardiology provider in July 2021 -08/10/21 LVEF 66%, severely decreased right ventricular systolic function, mild aortic valve stenosis -continue metoprolol tartrate 50mg BID -continue atorvastatin 40 mg qhs -continue ASA 81mg -continue isosorbide -reminded about appt with bessemer bottom maker Assessment & Plan (04/22/2023 11:33 AM EST): s/p cardiac catheterization 01/2018 s/p cardiac bypass 03/2018 --dicharged with atorvastatin, ASA, Plavix, metoprolol, and isosorbide --Plavix was discontinued when pt developed GI bleed -evaluated by [facility] cardiology provider in July 2021 -08/10/21 LVEF 66%, severely decreased right ventricular systolic function, mild aortic valve stenosis -continue metoprolol tartrate 50mg BID -continue atorvastatin 40 mg qhs -continue ASA 81mg -continue isosorbide -reminded about appt with bessemer bottom maker Assessment & Plan (02/07/2023 10:31 AM EDT): s/p cardiac catheterization 01/2018 s/p cardiac bypass 03/2018 --dicharged with atorvastatin, ASA, Plavix, metoprolol, and isosorbide --Plavix was discontinued when pt developed GI bleed -evaluated by [facility] cardiology provider in July 2021 -08/10/21 LVEF 66%, severely decreased right ventricular systolic function, mild aortic valve stenosis -continue metoprolol tartrate 50mg BID -continue atorvastatin 40 mg qhs -continue ASA 81mg -continue isosorbide -reminded about appt with bessemer bottom maker Assessment & Plan (10/29/2022 6:50 PM EDT): s/p cardiac catheterization 01/2018 s/p cardiac bypass 03/2018 --dicharged with atorvastatin, ASA, Plavix, metoprolol, and isosorbide --Plavix was discontinued when pt developed GI bleed -evaluated by [facility] cardiology provider in July 2021 -08/10/21 LVEF 66%, severely decreased right ventricular systolic function, mild aortic valve stenosis -continue metoprolol tartrate 50mg BID -continue atorvastatin 40 mg qhs -continue ASA 81mg -continue isosorbide -reminded about appt with bessemer bottom maker Assessment & Plan (06/19/2022 10:41 AM EST): s/p cardiac catheterization 01/2018 s/p cardiac bypass 03/2018 --dicharged with atorvastatin, ASA, Plavix, metoprolol, and isosorbide --Plavix was discontinued when pt developed GI bleed -evaluated by [facility] cardiology provider in July 2021 -08/10/21 LVEF 66%, severely decreased right ventricular systolic function, mild aortic valve stenosis -continue metoprolol tartrate 50mg BID -continue atorvastatin 40 mg qhs -continue ASA 81mg -continue isosorbide -reminded about appt with bessemer bottom maker, but pt's caregiver states he was told that he does not need a follow up Osteoarthritis of both knees 06/19/2022 Assessment & Plan (05/27/2024 1:13 PM EST): X-ray on 01/05/22 showed OA. -Pt prefers conservative management with Tylenol and Diclofenac topical -continue current treatment plan Assessment & Plan (01/24/2024 10:42 AM EDT): X-ray on 01/05/22 showed OA. -Pt prefers conservative management with Tylenol and Diclofenac topical -continue current treatment plan Assessment & Plan (06/19/2022 10:48 AM EST): X-ray on 01/05/22 showed OA. -Pt prefers conservative management with Tylenol and Diclofenac topical -continue current treatment plan Hypertension 06/19/2022 Assessment & Plan (05/27/2024 11:52 AM EST): -Goal BP < 140/90 per JNC-8 and < 130/80 per ACC/AHA -BP is not at goal today -home BP within acceptable range -Continue metoprolol tartrate 50 mg bid -Continue ASA -Continue CPAP -Continue working on lifestyle modifications -Continue checking home BP periodically -Follow-up in 3 mo. Assessment & Plan (01/24/2024 10:42 AM EDT): -Goal BP < 140/90 per JNC-8 and < 130/80 per ACC/AHA -BP is not at goal today -home BP within acceptable range -Continue metoprolol tartrate 50 mg bid -Continue ASA -Continue CPAP -Continue working on lifestyle modifications -Continue checking home BP periodically -Follow-up in 3 mo. Assessment & Plan (10/04/2023 9:30 AM EDT): -Goal BP < 140/90 per JNC-8 and < 130/80 per ACC/AHA -BP is better today likely because he doesn't have gouty pain. -home BP within acceptable range -Continue metoprolol tartrate 50 mg bid -Continue ASA -Continue CPAP -Continue working on lifestyle modifications -Continue checking home BP periodically -Follow-up in 3 mo. Assessment & Plan (06/10/2023 6:20 AM EST): -Goal BP < 140/90 per JNC-8 and < 130/80 per ACC/AHA -BP is better today likely because he doesn't have gouty pain. -home BP within acceptable range -Continue metoprolol tartrate 50 mg bid -Continue ASA -Continue CPAP -Continue working on lifestyle modifications -Continue checking home BP periodically -Follow-up in 3 mo. Assessment & Plan (04/24/2023 10:52 AM EST): -Goal BP < 140/90 per JNC-8 and < 130/80 per ACC/AHA -BP elevated today, likely due to pain -home BP within acceptable range -Continue metoprolol tartrate 50 mg bid -Continue ASA -Continue CPAP -Continue working on lifestyle modifications -Continue checking home BP periodically -Follow-up in 3 mo. Assessment & Plan (02/07/2023 10:29 AM EDT): -Goal BP < 140/90 per JNC-8 and < 130/80 per ACC/AHA -home BP within acceptable range -Continue metoprolol tartrate 50 mg bid -Continue CPAP -Continue working on lifestyle modifications -Continue checking home BP periodically -Follow-up in 3 mo. Assessment & Plan (10/18/2022 10:39 AM EDT): -Goal BP < 140/90 per JNC-8 and < 130/80 per ACC/AHA -home BP within acceptable range -Continue metoprolol tartrate 50 mg bid -Continue CPAP -Continue working on lifestyle modifications -Continue checking home BP periodically -Follow-up in 3 mo. Assessment & Plan (06/19/2022 10:42 AM EST): -Goal BP < 140/90 per JNC-8 and < 130/80 per ACC/AHA -home BP within acceptable range -Continue metoprolol tartrate 50 mg bid -Continue CPAP -Continue working on lifestyle modifications -Continue checking home BP periodically -Follow-up in 3 mo. Nonrheumatic aortic valve stenosis 06/19/2022 Assessment & Plan (05/27/2024 12:04 PM EST): -TTE on 08/10/21 showed LVEF 66%, severely decreased right ventricular systolic function. Mild aortic stenosis. -His murmur sounds more prominent that last exam, Grade II-III (last one was II) -Requested [facility] cardiology not to discharge patient and to follow every 1-2 years with TTE q1-2 years. -Will order echocardiogram Assessment & Plan (01/24/2024 10:42 AM EDT): -TTE on 08/10/21 showed LVEF 66%, severely decreased right ventricular systolic function. Mild aortic stenosis. -His murmur sounds more prominent that last exam, Grade II-III (last one was II) -Requested [facility] cardiology not to discharge patient and to follow every 1-2 years with TTE q1-2 years. Assessment & Plan (10/04/2023 9:30 AM EDT): -TTE on 08/10/21 showed LVEF 66%, severely decreased right ventricular systolic function. Mild aortic stenosis. -His murmur sounds more prominent that last exam, Grade II-III (last one was II) -Requested [facility] cardiology not to discharge patient and to follow every 1-2 years with TTE q1-2 years. Assessment & Plan (06/10/2023 6:21 AM EST): -TTE on 08/10/21 showed LVEF 66%, severely decreased right ventricular systolic function. Mild aortic stenosis. -His murmur sounds more prominent that last exam, Grade II-III (last one was II) -Requested [facility] cardiology not to discharge patient and to follow every 1-2 years with TTE q1-2 years. Assessment & Plan (04/22/2023 11:34 AM EST): -TTE on 08/10/21 showed LVEF 66%, severely decreased right ventricular systolic function. Mild aortic stenosis. -His murmur sounds more prominent that last exam, Grade II-III (last one was II) -Will ask [facility] cardiology if he can be followed every 1-2 years with TTE q1-2 years. Assessment & Plan (10/18/2022 10:40 AM EDT): -TTE on 08/10/21 showed LVEF 66%, severely decreased right ventricular systolic function. Mild aortic stenosis. -His murmur sounds more prominent that last exam, Grade II-III (last one was II) -Will ask [facility] cardiology if he can be followed every 1-2 years with TTE q1-2 years. Assessment & Plan (06/25/2022 10:40 AM EST): -TTE on 08/10/21 showed LVEF 66%, severely decreased right ventricular systolic function. Mild aortic stenosis. -His murmur sounds more prominent that last exam, Grade II-III (last one was II) -Will ask [facility] cardiology if he can be followed every 1-2 years with TTE q1-2 years. Resolved Problems Problem Noted Date Diagnosed Date Resolved Date Preoperative examination 04/24/2023 Assessment & Plan (04/24/2023 10:48 AM EST): - procedure is considered as low risk - pt is considered as intermediate risk - Functional level > 4 METs - pt will proceed to scheduled surgery without further risk stratification - pt was advised to follow perioperative instruction from her cabin furnishings installer - we appreciate Dr. Rodriguez for collaborative care. Encounters Date Type Department Care Team Description 05/30/2024 Telephone [facility] [address] [place] [address] Erika Dong, RN Results 05/27/2024 11:30 AM EST Office Visit [facility] [address] [place] [address] Sharee Barone MD JULIANO (obstructive sleep apnea) (Primary Dx); Primary hypertension; Ischemic heart disease; Nonrheumatic aortic valve stenosis; Coronary artery disease involving pechanga coronary artery of pechanga heart without angina pectoris; Primary osteoarthritis of both knees; Type 2 diabetes mellitus with other circulatory complication, without long-term current use of insulin ([facility]); Acquired hypothyroidism; Chronic gout of right ankle, unspecified cause; Dyslipidemia; Need for COVID-19 vaccine; Dietary counseling; Exercise counseling; Class 1 obesity due to excess calories with serious comorbidity and body mass index (BMI) of 32.0 to 32.9 in adult; Obesity (BMI 30.0-34.9) 05/27/2024 Travel 04/18/2024 Telephone [facility] [address] [place] [address] Erika Dong RN Results from Last 3 Months Immunizations Name Administration Dates Next Due Influenza High-dose Quadriva lent Preservative Free 03/20/2022 Influenza Injectable Quadriv alant Preservative Free IIV4 MDCK 02/04/2020 Influenza injectable quadriv alent preservative free 02/07/2023 Influenza, High Dose Seasona l, Preservative Free 01/24/2024,03/17/2019,02/01/2018 Pfizer Covid-19 Vaccine 12+ 05/27/2024, Pfizer Covid-19 Vaccine 12+ ce-sucrose (Muller Cap) 01/04/2022 Pneumococcal Conjugate PCV 20 01/04/2022 Tdap 01/04/2022 Zoster, Recombinant 03/20/2022,01/04/2022 Social History Tobacco Use Types Packs/Day Years Used Date Smoking Tobacco: Never Passive Smoke Exposure: Never Smokeless Tobacco: Never Tobacco Cessation:Counseling Given: Not Answered Alcohol Use Standard Drinks/Week Comments Never 0 [...] not to disclose 2021 10:39 AM EDT Last Filed Vital Signs Vital Sign Reading Time Taken Comments Blood Pressure 134/88 05/27/2024 12:02 PM EST Pulse 65 05/27/2024 11:47 AM EST Temperature 36.2 ??C (97.1 ??F) 05/27/2024 11:[address] Respiratory Rate 22 05/27/2024 11:47 AM EST Oxygen Saturation 98% 05/27/2024 11:47 AM EST Inhaled Oxygen Concentration - - Weight 77.6 kg (171 lb) 05/27/2024 11:47 AM EST Height 155.1 cm (5' 1.07 ) 01/24/2024 10:30 AM E DT Body Mass Index 32.24 01/24/2024 10:30 AM EDT Plan of Treatment Health Maintenance Due Date Last Done Comments RSV Patients and Patients Aged 60 years or older (1 - 1-dose 75+ series) 02/22/2019 Eye Exam 10/20/2024 10/20/2022, 01/2023, 10/20/2022, Additional history exists Diabetes: Hemoglobin A1C 11/24/2024 025, 01/24/2024, 10/04/2023, Additional history exists Alcohol/Substance Use Screening 01/23/2025 01/24/2024 Depression Screening 01/23/2025 01/24/2024, 01/24/20 Diabetes: Foot Exam 01/23/2025 01/24/2024, 01/24/2024, 01/24/2024, Additional history exists SDOH Screening 01/23/2025 01/24/2024 Diabetes: Urine Protein Screening 05/27/2025 05/27/2024, 06/04/2023, 06/19/2022, Additional history exists Lipid Panel 05/27/2025 05/27/2024, 05/15, 06/19/2022, Additional history exists Tobacco Screening 05/27/2025 05/27/2024 DTaP/Tdap/Td Vaccines (2 - Td or Tdap) 01/05/2032 01/04/2022 Pneumococcal Vaccine: 50+ Years Completed 01/04/2022 Zoster Vaccines Completed 03/20/2022, 01/04/2022 Influenza Vaccine Completed 01/24/2024, , 03/20/2022, Additional history exists COVID-19 Vaccine Completed 05/27/2024, , 01/04/2022, Additional history exists HIB Vaccines Aged Out No longer eligi ble based on patient's age to complete this topic HPV Vaccines Aged Out No longer eligi ble based on patient's age to complete this topic Hepatitis A Vaccines Aged Out No long er eligible based on patient's age to complete this topic Hepatitis B Vaccines Aged Out No long er eligible based on patient's age to complete this topic IPV Vaccines Aged Out No longer eligi ble based on patient's age to complete this topic Meningococcal Vaccine Aged Out No panchito parth eligible based on patient's age to complete this topic RSV under 20 months Aged Out No longe r eligible based on patient's age to complete this topic Rotavirus Vaccines Aged Out No longer eligible based on patient's age to complete this topic Procedures Procedure Name Priority Date/Time Associated Diagnosis Comments TSH W/REFLEX TO FT4 Routine 05/27/2024 1 2:25 PM EST Acquired hypothyroidism COMPREHENSIVE METABOLIC PANEL Routine 05/27/2024 12:25 PM EST Type 2 diabetes mellitus with other circulatory complication, without long-term current use of insulin (CMS/HCC) ALBUMIN, RANDOM URINE W/CREATININE Routine 05/27/2024 12:25 PM EST Type 2 diabetes mellitus with other circulatory complication, without long-term current use of insulin (CMS/HCC) LIPID PANEL WITH REFLEX TO DIRECT LDL Routine 05/27/2024 12:25 PM EST Type 2 diabetes mellitus with other circulatory complication, without long-term current use of insulin (CMS/HCC) VITAMIN B12/FOLATE, SERUM PANEL Routine 05/27/2024 12:25 PM EST Type 2 diabetes mellitus with other circulatory complication, without long-term current use of insulin (CMS/HCC) POCT GLYCOSYLATED HEMOGLOBIN (HGB A1C) Routine 05/27/2024 11:49 AM EST Type 2 diabetes mellitus with other circulatory complication, without long-term current use of insulin (CMS/HCC) POCT GLUCOSE Routine 05/27/2024 11:48 AM EST Type 2 diabetes mellitus with other circulatory complication, without long-term current use of insulin (CMS/HCC) from Last 3 Months Results * Vitamin B12/Folate, Serum Panel (05/27/2024 12:25 PM EST) Vitamin B12 256 200 - 900 pg/mL [facility] Comment:NORMAL 200-900 PG/ML INDETERMINATE 160-199 PG/ML DEFICIENT < 160 PG/ML Folate 11.2 > or = 4.0 ng/mL [facility] Comment:Reference Values:> o r = 4.0 ng/mL< 4.0 ng/mL suggests folate deficiency Methotrexate, aminopterin and folinic acid(leucovorin) are chemotherapeutic agents whose molecularstructures are similar to folate; therefore, the Architectfolate assay cannot be used for patients using these drugs. 05/27/2024 12:2 5 PM EST 05/27/2024 1:09 PM EST Sharee Barone MD LAB BLOOD ORDERABLES Final Resul t Performing Organization Address [facility] Co de Phone Number [facility] [address] [place] [phone] * TSH with Reflex to Free T4 (05/27/2024 12:25 PM EST) TSH reflex Free T4 3.82 0.32 - 4.0 uIU/mL [facility] Blood 05/27/2024 12:2 5 PM EST 05/27/2024 1:09 PM EST Sharee Barone MD LAB BLOOD ORDERABLES Final Resul t Performing Organization Address [facility] Phone Number [facility] [address] [place] [phone] * (ABNORMAL) Lipid Panel with Reflex to Direct LDL (05/27/2024 12:25 PM EST) Triglycerides 127 <150 mg/dL [facility] Comment:Desirable Triglyceri de: less than 150 mg/dLBorderline High Triglyceride 150-199 mg/dLHigh Triglyceride: 200-499 mg/dLVery High Triglyceride: greater than or equal to 5OO mg/dL Cholesterol 226(H) <200 mg/dL [facility] Comment:Desirable Cholestero l: less than 200 mg/dLBorderline High Cholesterol: 200-239 mg/dLHigh Cholesterol: greater than 239 mg/dL LDL Cholesterol Calculated 162(H) <100 mg/dL [facility] Comment:Desirable LDL: less than 100 mg/dLNear Optimal/Above Optimal LDL: 110- 129 mg/dLBorderline High LDL: 130-159 mg/dLHigh LDL: 160-189 mg/dLVery High LDL: greater than or equal to 190 mg/dL HDL Cholesterol 39(L) >40 mg/dL [facility] Comment:Desirable HDL: great er than 40 mg/dL Note: This HDL assay may give artificially low results in patients with liver disease. Blood 05/27/2024 12:2 5 PM EST 05/27/2024 1:09 PM EST us Sharee Barone MD LAB BLOOD ORDERABLES Final Resul t Performing Organization Address [facility] de Phone Number [facility] [address] [place] [phone] * Albumin, Random Urine W/Creatinine (05/27/2024 12:25 PM EST) Creatinine, Urine 60.52 mg/dL [facility] Microalbumin Urine 12.0 mg/L [facility] Microalbum Creatinine Ratio Ur 19.8 <30 ug/mg cr [facility] Comment:Albumin/Creatinine R atio Reference Ranges: Normal: < 30 ug/mg creatinine Microalbuminuria: 30 - 300 ug/mg creatinineClinical Albuminuria: > 300 ug/mg creatinine Urine 05/27/2024 12:2 5 PM EST 05/27/2024 1:46 PM EST us Sharee Barone MD LAB URINE ORDERABLES Final Resul t Performing Organization Address [facility] Co de Phone Number [facility] [address] [place] [address] [phone] * (ABNORMAL) Comprehensive Metabolic Panel (05/27/2024 12:25 PM EST) Sodium 142 135 - 145 mmol/L [facility] Potassium 4.1 3.3 - 5.1 mmol/L [facility] Chloride 109(H) 96 - 108 mmol/L [facility] Carbon Dioxide 30(H) 22 - 29 mmol/L [facility] Anion Gap 7(L) 12 - 20 [facility] Urea Nitrogen (BUN) 16 9 - 16 mg/dL [facility] Creatinine, Serum 1.06 0.5 - 1.4 mg/dL [facility] Estimated Glomerular Filt Rate >60 [facility] Comment:Chronic Kidney Disea se: Estimated GFR < 60 mL/min/[id number] Kidney Disease: Estimated GFR < 15 mL/min/1.73m2 Glucose 120(H) 60 - 115 mg/dL [facility] Calcium 8.9 8.4 - 10.2 mg/dL [facility] Bilirubin, Total 1.2(H) 0.0 - 1.0 mg/dL [facility] Aspartate Amino Transferase 32 5 - 37 U/L [facility] Alanine Aminotransferase 29 0 - 40 U/L [facility] Total Protein 7.2 6.5 - 8.0 g/dL [facility] Albumin Level 4.0 3.5 - 5.0 g/dL [facility] Alkaline Phosphatase 83 39 - 117 U/L [facility] Blood Venous blood specimen / Unknown 05/27/2024 12:25 PM EST 05/27/2024 1:09 PM EST Sharee Barone MD LAB BLOOD ORDERABLES Final Resul t [facility] [address] [place] [phone] * (ABNORMAL) POCT glycosylated hemoglobin (Hgb A1c) (05/27/2024 11:49 AM EST) Hemoglobin A1C 6.3(A) 4.0 - 6.0 % QC Media Lot # [id number] Lot# Expiration Date Blood Capillary blood specimen / Unknown 05/27/2024 11:49 AM EST Sharee Barone MD POINT OF CARE TEST ENTER/EDIT OR DERABLES Final Result * POCT glucose manually resulted (05/27/2024 11:48 AM EST) Glucose Blood, POC 102 60 - 200 mg/dL QC Media Lot # [id number] Lot# Expiration Date ,[id number] Blood Capillary blood specimen / Unknown 05/27/2024 11:48 AM EST Sharee Barone MD POINT OF CARE TEST ENTER/EDIT OR DERABLES Final Result from Last 3 Months Insurance [facility] [place] Francis [id number] Care Teams Entertainer Or Variety Artist Relationship Specialty Start Date End Date Sharee Barone MD [address] [place] [phone] PCP - General Family Medicine 05/10/21
== END ==
LOC: HO.CARD 08:48
PROVIDERS: PCP Family Medicine; Visit Provider Family Medicine
DX: I35.0 Nonrheumatic aortic (valve) stenosis (principal)
CPT/HCPCS: 93306; Q9957

== ENCOUNTER → 2024-06-13 09:03 | Outpatient (BNV) | payer MEDICARE, SELFPAY | PROVIDERS: PCP Family Medicine; Visit Provider Internal Medicine | DX: I35.2 Nonrheumatic aortic (valve) stenosis with insufficiency (principal); I36.1 Nonrheumatic tricuspid (valve) insufficiency; I42.2 Other hypertrophic cardiomyopathy | CPT/HCPCS: 93306 ==